=== PATIENT | female | born 1980 | race Caucasian/White ===

== ENCOUNTER 2022-11-25 17:01 | Emergency (ER) | payer SELFPAY ==
--- NOTE | ~2022-11-25 | CT_ITS ---
EXAMINATION: CT SHOULDER WITHOUT CONTRAST, RIGHT CLINICAL INFORMATION: Fall. COMPARISON: Radiographs earlier same day TECHNIQUE: Multidetector CT. Examination of the right shoulder without contrast. Reformatting in the coronal and parasagittal planes. This CT examination was performed using dose optimization techniques as appropriate, variously including the following: *Automated exposure control *Adjustment of mA and/or kV according to patient size (this includes techniques or standardized protocols for targeted exams where dose is matched to indication/reason for exam; i.e. extremities or head) *Use of iterative reconstruction technique DLP: 398 mGy-cm FINDINGS: There is hardware within the glenoid and humeral head which causes artifact. There is irregularity of the articular surface of the humeral head. The humeral head is anteriorly positioned relative to the glenoid. There are deformities and previous ghost tracks in the humeral head and there are proliferative osteophytes and some cystic/erosive changes. Loose bodies around humeral head. There is likely joint fluid. No convincing acute fracture of the humerus or scapula. There is some widening of the superior glenohumeral joint space and there is a fairly prominent acromiohumeral interval. Emphysema in the visualized right lung CT/CT shoulder RT wo IV con IMPRESSION: Limited study. Metallic hardware from previous repair of the humeral head and glenoid. The humeral head is inferiorly an anteriorly positioned relative to the glenoid. This may be chronic. There are loose bodies. No convincing acute fracture
--- NOTE | ~2022-11-25 | CT_ITS ---
EXAMINATION: CT CERVICAL SPINE WITHOUT CONTRAST CLINICAL INFORMATION: Left hand numbness status post fall COMPARISON: None available. TECHNIQUE: Multidetector CT scan of the cervical spine with multiplanar reconstructions. This CT examination was performed using dose optimization techniques as appropriate, variously including the following: *Automated exposure control *Adjustment of mA and/or kV according to patient size (this includes techniques or standardized protocols for targeted exams where dose is matched to indication/reason for exam; i.e. extremities or head) *Use of iterative reconstruction technique DLP: 410 mGy-cm FINDINGS: Motion degradation limits assessment. There is reversal of normal cervical lordosis. Generalized endplate spurring with early disc space narrowing C5-C6. No evidence of any fracture or subluxation. Bulky posterior marginal osteophytes noted at the C5-C6 level mildly encroaches upon the central canal resulting in at least mild to moderate central canal narrowing. No high-grade neural foraminal stenosis. No soft tissue lesion of significance. The apices grossly clear. CT/CT cervical spine wo IV con IMPRESSION: Motion degradation limits assessment. Spondylosis as above most notable at C5-C6. No fracture. Fleischner guidelines were followed.
--- NOTE | ~2022-11-25 | XR_ITS ---
EXAMINATION: XR SHOULDER, RIGHT CLINICAL INFORMATION: Fall. COMPARISON: None available. TECHNIQUE: Four views of the right shoulder. FINDINGS: No acute abnormality. No acute fracture or dislocation. Orthopedic screws and anchors present in the humeral head and glenoid. No hardware failure. There is irregularity of the inferior glenoid with spurring of the glenoid and the inferior humeral head. Humerus is subluxed relative to glenoid which is likely chronic. Acromiohumeral distance measuring 2.7 cm on image #3. 1.3 cm ovoid faintly calcified lesion inferior to the humeral head which is likely intra-articular loose body. XR/XR shoulder RT min 2V IMPRESSION: 1. No acute abnormality. 2. Postsurgical changes of the shoulder. 3. Subluxation of the humeral head relative to the glenoid which is likely chronic.
[2022-11-25 17:27] VITALS: BP 147/91; PULSE 115; RESP 20; TEMP 36.8; O2SAT 98; BMI 35.2
--- NOTE | 2022-11-25 18:01 | ED_ITS ---
HPI - Extremity Problem General Chief complaint: Extremity Injury, Upper Stated complaint: Fall/Right Shoulder Injury Time Seen by Provider: 11/25/22 17:59 Source: patient Mode of arrival: ambulatory Limitations: no limitations History of Present Illness HPI Narrative: Patient has stable right shoulder dislocated 6 years ago head trauma 5 years ago status post right shoulder socket repair the patient was on trampoline fell backwards about 2 hours landed complaining of pain in the right shoulder also complaining of tingling and numbness and weakness of the whole right hand except for the thumb extremities are normal color normal temperature radial pulse 2 + no head injury no neck pain Related Data Previous Rx's Medication Instructions Recorded oxycodone 5 mg tablet 5 mg PO Q6H PRN pain #20 tabs 11/25/22 Allergies Allergy/AdvReac Type Severity Reaction Status Date / Time No Known Allergies Allergy Verified 11/25/22 17:31 Review of Systems Review of Systems: Yes all other systems are reviewed and are negative [facility] Past Medical History Medical History (Updated 11/26/22 @ 00:01 by Katia Guo) Dislocation of right shoulder joint Surgical History (Updated 11/25/22 @ 18:16 by Cole Ortez MD) S/P shoulder surgery Social History Social History Alcohol intake: never Smoked in Last 30 Days: No Advance Directives: No Advance Directives Information Provided: No Physical Exam Vital Signs: Vital Signs: Last Vital Signs Temp 98.6 F 11/25/22 19:17 Pulse 96 11/25/22 19:17 Resp 20 11/25/22 19:17 BP 132/114 H 11/25/22 19:17 Pulse Ox 98 11/25/22 19:17 O2 Del Method Room Air 11/25/22 19:17 BMI result Body Mass Index 35.2 Appearance: Alert. Oriented X3. No acute distress. Neck: Normal inspection. Neck supple. No midline tenderness CVS: Normal heart rate and rhythm. Pulses normal. Respiratory: No respiratory distress. Equal air entry bilateral, Abdomen: Soft and nontender. Bowel sounds are present, Skin: Skin warm and dry. Normal skin color. Normal skin turgor. Extremities: No lower extremity edema. No calf tenderness diffuse tenderness right shoulder contour normal diffuse decreased sensation to light shoulder area no dermatomal pattern the right hand also decreased sensations and motor activity of right 3 fingers neurovascular intact patient unable to extend right 3 fingers Neuro: Oriented X 3. Medications Administered Discontinued Medications Generic Name Dose Route Start Last Admin Trade Name Jaida PRN Reason Stop Dose Admin Morphine Sulfate 4 mg 11/25/22 18:23 11/25/22 19:00 Morphine Sulfate 4 Mg/Ml Cartridge IVPUSH 11/25/22 18:24 4 mg ONCE ONE Administration Protocol Oxycodone HCl 10 mg 11/25/22 20:00 11/25/22 20:14 Oxycodone Hcl Immed Release 5 Mg Tablet PO 11/25/22 20:01 10 mg ONCE ONE Administration Medical Decision Making Medical Decision Making [facility] Narrative: Patient with nonspecific neuro symptoms on the right hand last visit to the shoulder injury as she fell backwards no axillary pain patient is saying that this is new x-rays negative Patient's CT scan of the C-spine and right shoulder was done without any significant changes etiology of right finger pain with follow as outpatient patient was given sling Differential Diagnosis Differential Diagnoses: The differential diagnosis associated with the presentation includes Shoulder fracture/ nerve injury Radiology Impression Discussion of test interpretation with radiology: I have reviewed the radiologist's reading. Radiologist Impression: [address] [address] XRay Report Signed Patient: Janice Campos MR#: [id number] : 1980 Acct:[id number] Age/Sex: 42 / F ADM Date: 11/25/22 Loc: HO.ED Attending Dr: Ordering Physician: Cole Ortez MD Date of Service: 11/25/22 Procedure(s): XR shoulder RT min 2V Accession Number(s): [id number] cc: Physician,None ; Cole Ortez MD~ EXAMINATION: XR SHOULDER, RIGHT CLINICAL INFORMATION: Fall.? COMPARISON: None available.? TECHNIQUE: Four views of the right shoulder. FINDINGS: No acute abnormality. No acute fracture or dislocation. Orthopedic screws and anchors present in the humeral head and glenoid. No hardware failure. There is irregularity of the inferior glenoid with spurring of the glenoid and the inferior humeral head. Humerus is subluxed relative to glenoid which is likely chronic. Acromiohumeral distance measuring 2.7 cm on image #3. 1.3 cm ovoid faintly calcified lesion inferior to the humeral head which is likely intra-articular loose body. XR/XR shoulder RT min 2V IMPRESSION: 1.? No acute abnormality. 2.? Postsurgical changes of the shoulder. 3.? Subluxation of the humeral head relative to the glenoid which is likely chronic. [address] [address] [address] Scan Report Signed Patient: Janice Campos MR#: [id number] : 1980 Acct:[id number] Age/Sex: 42 / F ADM Date: 11/25/22 Loc: HO.ED Attending Dr: Ordering Physician: Cole Ortez MD Date of Service: 11/25/22 Procedure(s): CT shoulder RT wo IV con Accession Number(s): [id number] cc: Physician,None ; Cole Ortez MD~ EXAMINATION: CT SHOULDER WITHOUT CONTRAST, RIGHT CLINICAL INFORMATION: Fall.? COMPARISON: Radiographs earlier same day? ? TECHNIQUE: Multidetector CT. Examination of the right shoulder without contrast. Reformatting in the coronal and parasagittal planes.? This CT examination was performed using dose optimization techniques as appropriate, variously including the following: *Automated exposure control *Adjustment of mA and/or kV according to patient size (this includes techniques or standardized protocols for targeted exams where dose is matched to indication/reason for exam; i.e. extremities or head) *Use of iterative reconstruction technique DLP: 398 mGy-cm FINDINGS: There is hardware within the glenoid and humeral head which causes artifact. There is irregularity of the articular surface of the humeral head. The humeral head is anteriorly positioned relative to the glenoid. There are deformities and previous ghost tracks in the humeral head and there are proliferative osteophytes and some cystic/erosive changes. Loose bodies around humeral head. There is likely joint fluid. No convincing acute fracture of the humerus or scapula. There is some widening of the superior glenohumeral joint space and there is a fairly prominent acromiohumeral interval. Emphysema in the visualized right lung CT/CT shoulder RT wo IV con IMPRESSION: Limited study. Metallic hardware from previous repair of the humeral head and glenoid. The humeral head is inferiorly an anteriorly positioned relative to the glenoid. This may be chronic. There are loose bodies. ? No convincing acute fracture ?[address] [address] [address] Scan Report Signed Patient: Janice Campos MR#: [id number] : 1980 Acct:[id number] Age/Sex: 42 / F ADM Date: 11/25/22 Loc: HO.ED Attending Dr: Ordering Physician: Cole Ortez MD Date of Service: 11/25/22 Procedure(s): CT cervical spine wo IV con Accession Number(s): [id number] cc: Physician,None ; Cole Ortez MD~ EXAMINATION: CT CERVICAL SPINE WITHOUT CONTRAST CLINICAL INFORMATION: Left hand numbness status post fall? COMPARISON: None available. TECHNIQUE: Multidetector CT scan of the cervical spine with multiplanar reconstructions.? This CT examination was performed using dose optimization techniques as appropriate, variously including the following: *Automated exposure control *Adjustment of mA and/or kV according to patient size (this includes techniques or standardized protocols for targeted exams where dose is matched to indication/reason for exam; i.e. extremities or head) *Use of iterative reconstruction technique DLP: 410 mGy-cm FINDINGS: Motion degradation limits assessment. There is reversal of normal cervical lordosis. Generalized endplate spurring with early disc space narrowing C5-C6. No evidence of any fracture or subluxation. Bulky posterior marginal osteophytes noted at the C5-C6 level mildly encroaches upon the central canal resulting in at least mild to moderate central canal narrowing. No high-grade neural foraminal stenosis. No soft tissue lesion of significance. The apices grossly clear.? CT/CT cervical spine wo IV con IMPRESSION: Motion degradation limits assessment. Spondylosis as above most notable at C5-C6. No fracture. Discharge Plan Discharge Clinical Impression: Pain in right shoulder Patient Disposition: Home, Self-Care Instructions: Shoulder Pain (ED) Additional Instructions: Wear the sling for support Pain medication as prescribed Follow with Ortho for further evaluation of pain and finger numbness Prescriptions: New oxycodone 5 mg tablet 5 mg PO Q6H PRN (Reason: pain) Qty: 20 0RF Rx Instructions: Partial Fill upon patient request. Referrals: Christiano Ac MD [Physician] - 1 week Interventions: ED Discharge Assessment Last Done: 11/25/22 20:57 Discharge Date/Time: 11/25/22 20:58
[2022-11-25] MEDS: Morphine Sulfate 4 MG/ML CARTRIDGE IVPUSH (19:00)
--- NOTE | 2022-11-25 19:08 | PC.NURSE ---
assumed care of pt at 1900 - medicated per may for pain. waiting for ct scan. call [facility] within reach
[2022-11-25 19:17] VITALS: BP 132/114; PULSE 96; RESP 20; TEMP 37; O2SAT 98
[2022-11-25] MEDS: oxyCODONE HCl Immed Release 5 MG TABLET 10 MG PO (20:14)
--- NOTE | 2022-11-25 20:16 | PC.NURSE ---
pt reports slight relief of pain after morphine administration however pain has returned after patient had to lay flat for ct scan. MD richter aware. pt medicated with oxycodone per may. waiting for ct scan results. call [facility] within reach
== END 2022-11-25 20:58 | disposition home or self-care (01) ==
PROVIDERS: Emergency Provider Internal Medicine
DX: S49.91XA Unspecified injury of right shoulder and upper arm, initial encounter (principal); M25.511 Pain in right shoulder; M54.2 Cervicalgia; R51.9 Headache, unspecified; R20.0 Anesthesia of skin; W01.0XXA Fall on same level from slipping, tripping and stumbling without subsequent striking against object, initial encounter; Y93.9 Activity, unspecified; Y92.9 Unspecified place or not applicable; Y99.9 Unspecified external cause status
CPT/HCPCS: 72125; 73030; 73200; 96374; 99284; J2270